=== PATIENT | female | born 1940 | race Caucasian/White ===

== ENCOUNTER 2022-03-11 08:45 | Outpatient (CLI) | payer MEDICARE, BC | END 2022-03-11 08:46 | disposition home or self-care (01) | LOC: RAD 08:45 | PROVIDERS: ATTEND Internal Medicine Critical Care Medicine | DX: R06.00 Dyspnea, unspecified (principal); J98.4 Other disorders of lung | CPT/HCPCS: 71046 ==

== ENCOUNTER 2023-02-07 11:12 | Outpatient (CLI) | payer MEDICARE, BC | END 2023-02-07 11:13 | disposition home or self-care (01) | LOC: RAD 11:12 | PROVIDERS: ATTEND Internal Medicine Critical Care Medicine | DX: R06.00 Dyspnea, unspecified (principal) | CPT/HCPCS: 71046 ==

== ENCOUNTER 2023-02-25 20:50 | Inpatient (IN) | payer MEDICARE, BC ==
[2023-02-25 21:37] LABS: #Monocytes 0.5 thou/uL (0.11-0.59); #Neutrophils 13.7 thou/uL (1.40-6.50); %Basophils 0.3 % (0.0-1.0); %Eosinophils 0.2 % (0.0-10.0); %Lymphocytes 2.9 % (21.0-51.0); %Monocytes 3.2 % (0.0-10.0); %Neutrophils 92.9 % (42.0-75.0); Hematocrit 45.9 % (36.0-47.0); Hemoglobin 15.2 g/dL (12.0-16.0); Mean Corpuscular HGB CONC 33.1 g/dL (32.0-36.0); Mean Corpuscular Hemoglobin 28.2 pg (27.0-31.0); Mean Corpuscular Volume 85.2 fl (78.0-98.0); Mean Platelet Volume 8.7 fL (7.4-10.4); Platelet Count 249 10x3/uL (130-400); RBC Distribution Width 14.9 % (11.5-14.5); Red Blood Cell (RBC) Count 5.39 mill/uL (4.20-5.40); White Blood Cell (WBC) Count 14.7 10x3/uL (4.8-10.8)
[2023-02-25 21:51] LABS: PTT 31.9 sec (22.9-36.1)
[2023-02-25 21:52] LABS: D-Dimer Test 1.95 *mcg/mL (0.27-0.43)
[2023-02-25] MEDS ORDERED: cefTRIAXone (ROCEPHIN) 2 GM VIAL ONE (21:56)
[2023-02-25 22:03] LABS: Troponin I 0.024 ng/mL (< 0.028)
[2023-02-25 22:06] LABS: ALT (SGPT) 18 U/L (8-55); AST (SGOT) 13 U/L (5-34); Albumin 3.6 g/dL (3.4-4.8); Alkaline Phosphatase 79 U/L (40-110); Anion Gap 16 mmol/L (10-20); BUN (Urea Nitrogen) 20 mg/dL (9.8-20.1); Bilirubin, Total 0.4 mg/dL (0.2-1.2); Calc. Creatinine Clearance 0 mL/min (70-130); Calcium 9.1 mg/dL (7.8-10.44); Carbon Dioxide 17 mmol/L (23-31); Chloride 101 mmol/L (98-107); Estimated GFR 85; Globulin 2.7 g/dL (2.4-3.5); Glucose 140 mg/dL (83-110); Potassium 4.2 mmol/L (3.5-5.1); Protein, Total 6.3 g/dL (5.8-8.1); Sodium 130 mmol/L (136-145)
[2023-02-25 22:39] LABS: SARS-CoV-2 NAA Rapid Test Not Detected (NotDetected)
[2023-02-26] MEDS ORDERED: Acetaminophen 650 MG Suppository PR PRN (00:11)
[2023-02-26] MEDS ORDERED: Ondansetron ODT 4 MG TAB PO PRN (00:11)
[2023-02-26] MEDS ORDERED: Ondansetron PF 4 MG/2 ML Vial IVP PRN (00:11)
[2023-02-26 01:07] VITALS: BMI 22.8
[2023-02-26 01:54] LABS: Troponin I 0.015 ng/mL (< 0.028)
[2023-02-26 04:40] LABS: #Monocytes 0.6 thou/uL (0.11-0.59); #Neutrophils 6.4 thou/uL (1.40-6.50); %Basophils 0.1 % (0.0-1.0); %Eosinophils 0.1 % (0.0-10.0); %Lymphocytes 8.7 % (21.0-51.0); %Monocytes 7.9 % (0.0-10.0); %Neutrophils 82.7 % (42.0-75.0); Hematocrit 43.7 % (36.0-47.0); Hemoglobin 13.9 g/dL (12.0-16.0); Mean Corpuscular HGB CONC 31.8 g/dL (32.0-36.0); Mean Platelet Volume 8.4 fL (7.4-10.4); Platelet Count 214 10x3/uL (130-400); RBC Distribution Width 14.9 % (11.5-14.5); Red Blood Cell (RBC) Count 4.96 mill/uL (4.20-5.40); White Blood Cell (WBC) Count 7.7 10x3/uL (4.8-10.8)
[2023-02-26 04:46] LABS: Mean Corpuscular Volume 88.1 fl (78.0-98.0)
[2023-02-26 05:01] LABS: Anion Gap 10 mmol/L (10-20); BUN (Urea Nitrogen) 15 mg/dL (9.8-20.1); Calc. Creatinine Clearance 64 mL/min (70-130); Calcium 8.3 mg/dL (7.8-10.44); Carbon Dioxide 22 mmol/L (23-31); Chloride 105 mmol/L (98-107); Estimated GFR 88; Glucose 126 mg/dL (83-110); Potassium 4.2 mmol/L (3.5-5.1); Sodium 133 mmol/L (136-145)
[2023-02-26 05:07] LABS: Troponin I 0.014 ng/mL (< 0.028)
[2023-02-26] MEDS ORDERED: Simethicone Chewable 80 MG TAB PO PRN (08:46)
[2023-02-26] MEDS ORDERED: Loratadine 10 MG TAB PO SCH (09:00)
[2023-02-26] MEDS ORDERED: predniSONE 20 MG TAB PO SCH (09:00)
[2023-02-26] MEDS: Amlodipine 10 MG TAB PO SCH (09:16)
[2023-02-26] MEDS: Famotidine 20 MG TAB PO SCH (09:18)
[2023-02-26] MEDS: Lisinopril 20 MG TAB PO SCH (09:19)
[2023-02-26] MEDS: Loratadine 10 MG TAB PO SCH (09:20)
[2023-02-26] MEDS: Milk Of Magnesia 30 ML UDCUP PO SCH ×2 (09:20→20:44)
[2023-02-26] MEDS ORDERED: Furosemide 20 MG/2 ML VIAL SLOW IVP SCH (09:45)
[2023-02-26] MEDS: Mometasone 100 MCG HFA INHALER (RT USE) INH SCH (19:05)
[2023-02-27 04:58] LABS: #Eosinphils 0.1 thou/uL (0.0-0.7); #Monocytes 0.8 thou/uL (0.11-0.59); #Neutrophils 6.7 thou/uL (1.40-6.50); %Basophils 0.5 % (0.0-1.0); %Lymphocytes 12.2 % (21.0-51.0); Hematocrit 43.2 % (36.0-47.0); Hemoglobin 14.1 g/dL (12.0-16.0); Mean Corpuscular HGB CONC 32.6 g/dL (32.0-36.0); Mean Corpuscular Hemoglobin 28.1 pg (27.0-31.0); Mean Corpuscular Volume 86.2 fl (78.0-98.0); Mean Platelet Volume 8.7 fL (7.4-10.4); Platelet Count 233 10x3/uL (130-400); RBC Distribution Width 14.8 % (11.5-14.5); Red Blood Cell (RBC) Count 5.01 mill/uL (4.20-5.40); White Blood Cell (WBC) Count 8.7 10x3/uL (4.8-10.8)
[2023-02-27 05:24] LABS: Anion Gap 13 mmol/L (10-20); BUN (Urea Nitrogen) 15 mg/dL (9.8-20.1); Calc. Creatinine Clearance 58 mL/min (70-130); Calcium 8.6 mg/dL (7.8-10.44); Carbon Dioxide 22 mmol/L (23-31); Chloride 102 mmol/L (98-107); Estimated GFR 86; Glucose 87 mg/dL (83-110); Potassium 3.9 mmol/L (3.5-5.1); Sodium 133 mmol/L (136-145)
[2023-02-27] MEDS: Mometasone 100 MCG HFA INHALER (RT USE) INH SCH ×2 (06:52→18:40)
[2023-02-27] MEDS: Lisinopril 20 MG TAB PO SCH (09:53)
[2023-02-27] MEDS: Amlodipine 10 MG TAB PO SCH (09:54)
[2023-02-27] MEDS: Milk Of Magnesia 30 ML UDCUP PO SCH ×2 (09:54→22:46)
[2023-02-27] MEDS: Loratadine 10 MG TAB PO SCH (09:54)
[2023-02-27] MEDS: Famotidine 20 MG TAB PO SCH (09:54)
[2023-02-28] MEDS: Levothyroxine Sodium 125 MCG TAB PO SCH (05:12)
[2023-02-28] MEDS: Mometasone 100 MCG HFA INHALER (RT USE) INH SCH ×2 (07:25→19:05)
[2023-02-28] MEDS: Apixaban 5 MG TAB PO SCH ×2 (09:18→20:16)
[2023-02-28] MEDS: Loratadine 10 MG TAB PO SCH (09:18)
[2023-02-28] MEDS: Famotidine 20 MG TAB PO SCH (09:18)
[2023-02-28] MEDS: Lisinopril 20 MG TAB PO SCH (09:18)
[2023-02-28] MEDS: Amlodipine 10 MG TAB PO SCH (09:19)
[2023-02-28] MEDS: Milk Of Magnesia 30 ML UDCUP PO SCH ×2 (09:20→20:16)
[2023-02-28] MEDS ORDERED: Albuterol 200 PUFF (6.7GM INHALER) INH PRN (10:09)
[2023-02-28] MEDS: Acetaminophen 325 MG TAB PO PRN (20:26)
[2023-03-01] MEDS: Levothyroxine Sodium 125 MCG TAB PO SCH (06:30)
[2023-03-01] MEDS: Mometasone 100 MCG HFA INHALER (RT USE) INH SCH ×2 (07:28→18:33)
[2023-03-01] MEDS: Amlodipine 10 MG TAB PO SCH (09:26)
[2023-03-01] MEDS: Famotidine 20 MG TAB PO SCH (09:27)
[2023-03-01] MEDS: Lisinopril 20 MG TAB PO SCH (09:27)
[2023-03-01] MEDS: Apixaban 5 MG TAB PO SCH ×2 (09:27→21:55)
[2023-03-01] MEDS: Loratadine 10 MG TAB PO SCH (09:27)
[2023-03-01] MEDS: Milk Of Magnesia 30 ML UDCUP PO SCH ×2 (09:29→21:55)
[2023-03-02] MEDS: Levothyroxine Sodium 125 MCG TAB PO SCH (06:09)
[2023-03-02] MEDS: Mometasone 100 MCG HFA INHALER (RT USE) INH SCH ×2 (07:14→19:09)
[2023-03-02] MEDS: Loratadine 10 MG TAB PO SCH (08:13)
[2023-03-02] MEDS: Famotidine 20 MG TAB PO SCH (08:13)
[2023-03-02] MEDS: Lisinopril 20 MG TAB PO SCH (08:14)
[2023-03-02] MEDS: Amlodipine 10 MG TAB PO SCH (08:14)
[2023-03-02] MEDS: Apixaban 5 MG TAB PO SCH ×2 (08:14→20:27)
[2023-03-02] MEDS: Milk Of Magnesia 30 ML UDCUP PO SCH ×2 (08:14→20:28)
[2023-03-03] MEDS: Acetaminophen 325 MG TAB PO PRN ×3 (03:37→21:38)
[2023-03-03] MEDS: Levothyroxine Sodium 125 MCG TAB PO SCH (05:52)
[2023-03-03] MEDS: Mometasone 100 MCG HFA INHALER (RT USE) INH SCH ×2 (07:14→18:34)
[2023-03-03] MEDS: Lisinopril 20 MG TAB PO SCH (08:24)
[2023-03-03] MEDS: Apixaban 5 MG TAB PO SCH ×2 (08:24→21:37)
[2023-03-03] MEDS: Loratadine 10 MG TAB PO SCH (08:24)
[2023-03-03] MEDS: Milk Of Magnesia 30 ML UDCUP PO SCH ×2 (08:25→21:38)
[2023-03-03] MEDS: Amlodipine 10 MG TAB PO SCH (08:25)
[2023-03-03] MEDS: Famotidine 20 MG TAB PO SCH (08:25)
[2023-03-04 00:20] VITALS: TEMP 97.5
[2023-03-04] MEDS: Levothyroxine Sodium 125 MCG TAB PO SCH (05:36)
[2023-03-04] MEDS: Mometasone 100 MCG HFA INHALER (RT USE) INH SCH ×2 (07:27→18:50)
[2023-03-04] MEDS: Famotidine 20 MG TAB PO SCH (08:16)
[2023-03-04] MEDS: Apixaban 5 MG TAB PO SCH (08:16)
[2023-03-04] MEDS: Loratadine 10 MG TAB PO SCH (08:16)
[2023-03-04] MEDS: Milk Of Magnesia 30 ML UDCUP PO SCH ×2 (08:16→08:21)
[2023-03-04] MEDS: Amlodipine 10 MG TAB PO SCH (08:16)
[2023-03-04] MEDS: Lisinopril 20 MG TAB PO SCH (08:16)
[2023-03-04 16:30] VITALS: BP 121/76
== END 2023-03-04 19:05 | DRG 175 ==
LOC: ERS 20:50 → 2NO 23:23 → T4-A 03-02 12:45
PROVIDERS: ADMIT Student in an Organized Health Care Education/Training Program; ATTEND Family Medicine
DX: I26.99 Other pulmonary embolism without acute cor pulmonale (principal); J96.01 Acute respiratory failure with hypoxia; E87.20 Acidosis, unspecified; E87.1 Hypo-osmolality and hyponatremia; I82.432 Acute embolism and thrombosis of left popliteal vein; Z66 Do not resuscitate; Z20.822 Contact with and (suspected) exposure to COVID-19; I10 Essential (primary) hypertension; J45.909 Unspecified asthma, uncomplicated; Z79.899 Other long term (current) drug therapy; Z79.52 Long term (current) use of systemic steroids
CPT/HCPCS: 36415; 71045; 71275; 80048; 80053; 83605; 83880; 84484; 85025; 85379; 85610; 85730; 87040; 93005; 93306; 93970; 94640; 94760; J0696; J1650; J1940; J7512; U0002

== ENCOUNTER 2023-03-28 09:01 | Observation (INO) | payer MEDICARE, BC ==
[2023-03-28 09:32] LABS: #Basophils 0.1 thou/uL (0.0-0.2); #Eosinphils 0.3 thou/uL (0.0-0.7); #Monocytes 0.9 thou/uL (0.11-0.59); #Neutrophils 6.5 thou/uL (1.40-6.50); %Basophils 0.9 % (0.0-1.0); %Eosinophils 3.7 % (0.0-10.0); %Lymphocytes 9.2 % (21.0-51.0); %Monocytes 10.2 % (0.0-10.0); %Neutrophils 75.6 % (42.0-75.0); Hematocrit 38.4 % (36.0-47.0); Hemoglobin 12.9 g/dL (12.0-16.0); Mean Corpuscular HGB CONC 33.6 g/dL (32.0-36.0); Mean Corpuscular Hemoglobin 28.9 pg (27.0-31.0); Mean Corpuscular Volume 86.1 fl (78.0-98.0); Mean Platelet Volume 8.1 fL (7.4-10.4); Platelet Count 489 10x3/uL (130-400); RBC Distribution Width 14.1 % (11.5-14.5); Red Blood Cell (RBC) Count 4.46 mill/uL (4.20-5.40); White Blood Cell (WBC) Count 8.6 10x3/uL (4.8-10.8)
[2023-03-28 09:46] LABS: PTT 31.5 sec (22.9-36.1)
[2023-03-28 09:55] LABS: ALT (SGPT) 13 U/L (8-55); AST (SGOT) 11 U/L (5-34); Albumin 3.5 g/dL (3.4-4.8); Alkaline Phosphatase 84 U/L (40-110); Anion Gap 14 mmol/L (10-20); BUN (Urea Nitrogen) 9 mg/dL (9.8-20.1); Bilirubin, Total 0.4 mg/dL (0.2-1.2); Calc. Creatinine Clearance 0 mL/min (70-130); Carbon Dioxide 24 mmol/L (23-31); Chloride 98 mmol/L (98-107); Estimated GFR 85; Globulin 2.6 g/dL (2.4-3.5); Glucose 116 mg/dL (83-110); Potassium 3.7 mmol/L (3.5-5.1); Protein, Total 6.1 g/dL (5.8-8.1); Sodium 132 mmol/L (136-145)
[2023-03-28 10:00] LABS: Troponin I Less than 0.010 ng/mL (< 0.028)
[2023-03-28] MEDS ORDERED: Iopamidol-370 76% 500 ML MDV (1 ML CHARGE) ONE (11:04)
[2023-03-28 12:01] LABS: Bacteria/HPF None Seen HPF (None Seen); Bilirubin Negative (Negative); Blood, Urine Negative (Negative); CAUTI Indications for Culture Alt mental st,lethar; Clarity Clear (Clear); Glucose, Urine (Dipstick) Normal (Negative); Ketone, Urine Negative (Negative); Leukocyte Negative Leu/uL (Negative); Nitrite Negative (Negative); Protein, Urine (Dipstick) Negative (Neg-Trace); RBC/HPF 0-3 HPF (0-3); Specific Gravity, Urine 1.016 (1.002-1.036); Squamous Epithelial None Seen HPF (0-3); Urobilinogen Normal mg/dL (Less than 2); WBC/HPF 0-3 HPF (0-3)
[2023-03-28 12:06] LABS: Urine Culture Reflex No No
[2023-03-28] MEDS ORDERED: SIMETHICONE 125 MG PO PRN (13:05)
[2023-03-28] MEDS ORDERED: Acetaminophen 650 MG Suppository PR PRN (13:14)
[2023-03-28] MEDS ORDERED: hydrALAZINE 20 MG/ML VIAL SLOW IVP PRN (13:14)
[2023-03-28] MEDS ORDERED: Acetaminophen 325 MG TAB PO PRN (13:14)
[2023-03-28] MEDS ORDERED: Electrolyte Replacement Protocol 1 EACH FS SCH (13:30)
[2023-03-28] MEDS ORDERED: Simethicone Chewable 80 MG TAB PO PRN (13:43)
[2023-03-28] MEDS ORDERED: Aspirin 81 mg Enteric Coated Tablet PO SCH (14:45)
[2023-03-28] MEDS: Albuterol 200 PUFF (6.7GM INHALER) INH SCH ×3 (15:44→21:22)
[2023-03-28 15:45] VITALS: BMI 18.1
[2023-03-28] MEDS ORDERED: Non-Formulary Item 1 EACH (Albuterol Sulfate [Proair Digihaler] 90 MCG Aer.Pw.Bas) IH SCH (17:00)
[2023-03-28] MEDS: Mometasone 100 MCG/PUFF (1 INHALER) INH SCH (18:31)
[2023-03-28] MEDS ORDERED: ALBUTEROL SULFATE 4 MG PO SCH (21:00)
[2023-03-28] MEDS ORDERED: [UNRECOGNIZED DRUG - OTHER] NS SCH (21:00)
[2023-03-28] MEDS ORDERED: Atorvastatin Calcium 40 MG TAB PO SCH (21:00)
[2023-03-28] MEDS ORDERED: Non-Formulary Item 1 EACH (Fexofenadine Hcl [Allegra Allergy] 60 MG Tablet) PO SCH (21:00)
[2023-03-28] MEDS: Apixaban 5 MG TAB PO SCH (21:12)
[2023-03-28 23:59] VITALS: TEMP 97.7
[2023-03-29] MEDS: Albuterol 200 PUFF (6.7GM INHALER) INH SCH ×4 (00:22→10:33)
[2023-03-29 05:19] LABS: #Basophils 0.1 thou/uL (0.0-0.2); #Eosinphils 0.5 thou/uL (0.0-0.7); #Neutrophils 5.7 thou/uL (1.40-6.50); %Basophils 1.1 % (0.0-1.0); %Eosinophils 5.9 % (0.0-10.0); %Lymphocytes 10.9 % (21.0-51.0); %Monocytes 12.4 % (0.0-10.0); %Neutrophils 69.3 % (42.0-75.0); Hematocrit 38.3 % (36.0-47.0); Hemoglobin 12.5 g/dL (12.0-16.0); Mean Corpuscular HGB CONC 32.6 g/dL (32.0-36.0); Mean Corpuscular Volume 85.7 fl (78.0-98.0); Mean Platelet Volume 8.1 fL (7.4-10.4); Platelet Count 479 10x3/uL (130-400); RBC Distribution Width 14.2 % (11.5-14.5); Red Blood Cell (RBC) Count 4.47 mill/uL (4.20-5.40); White Blood Cell (WBC) Count 8.3 10x3/uL (4.8-10.8)
[2023-03-29] MEDS ORDERED: Levothyroxine Sodium 125 MCG TAB PO SCH (06:00)
[2023-03-29] MEDS: Mometasone 100 MCG/PUFF (1 INHALER) INH SCH (06:50)
[2023-03-29 07:20] LABS: Anion Gap 14 mmol/L (10-20); BUN (Urea Nitrogen) 6 mg/dL (9.8-20.1); Calc. Creatinine Clearance 68 mL/min (70-130); Calcium 8.8 mg/dL (7.8-10.44); Carbon Dioxide 24 mmol/L (23-31); Cardiac Risk 3.1 (Less than 4.5); Chloride 99 mmol/L (98-107); Cholesterol 155 mg/dl (< 200 Desired); Estimated GFR 90; Glucose 102 mg/dL (83-110); HDL Cholesterol 50 mg/dL (>60 Neg Risk); LDL Cholesterol, Calculated 94 mg/dL; Magnesium 2.1 mg/dL (1.6-2.6); Potassium 3.5 mmol/L (3.5-5.1); Sodium 133 mmol/L (136-145); Triglycerides 57 mg/dL (Less than 150)
[2023-03-29] MEDS ORDERED: Potassium Chloride 20 MEQ TAB PO SCH (08:00)
[2023-03-29] MEDS: Apixaban 5 MG TAB PO SCH (08:54)
[2023-03-29] MEDS ORDERED: Aspirin 81 mg Enteric Coated Tablet PO SCH (09:00)
[2023-03-29] MEDS ORDERED: Famotidine 20 MG TAB PO SCH (09:00)
[2023-03-29] MEDS ORDERED: Non-Formulary Item 1 EACH (Levothyroxine Sodium [Levothyroxine Sodium] 125 MCG Capsule) PO SCH (09:00)
[2023-03-29] MEDS ORDERED: FLU VACC QS2023(65UP)/MF59C/PF 60 MCG/0.5 ML SYRINGE IM ONE (09:00)
[2023-03-29] MEDS ORDERED: Lisinopril 20 MG TAB PO SCH (09:00)
[2023-03-29] MEDS ORDERED: Loratadine 10 MG TAB PO SCH (09:00)
[2023-03-29 09:55] VITALS: BP 187/103
[2023-04-05] MEDS ORDERED: Apixaban 5 MG TAB PO SCH (09:00)
== END 2023-03-29 11:45 | disposition home or self-care (01) ==
LOC: ERS 09:01 → 2SE 11:44
PROVIDERS: ADMIT Internal Medicine; ATTEND Internal Medicine
DX: R41.82 Altered mental status, unspecified (principal); I10 Essential (primary) hypertension; J90 Pleural effusion, not elsewhere classified; J45.40 Moderate persistent asthma, uncomplicated; E87.1 Hypo-osmolality and hyponatremia; E03.9 Hypothyroidism, unspecified; H26.9 Unspecified cataract; F03.90 Unspecified dementia, unspecified severity, without behavioral disturbance, psychotic disturbance, mood disturbance, and anxiety; Z99.81 Dependence on supplemental oxygen; Z79.890 Hormone replacement therapy; Z79.899 Other long term (current) drug therapy; Z79.01 Long term (current) use of anticoagulants; Z86.718 Personal history of other venous thrombosis and embolism
CPT/HCPCS: 70450; 70496; 70498; 71045; 80048; 80053; 80061; 81001; 82962; 83735; 84484; 85025 ×2; 85610; 85730; 93005; 95816; 95819; 99285; G0378 ×3; 36415; 36416; Q9967

== ENCOUNTER 2023-04-13 16:28 | Inpatient (IN) | payer MEDICARE, BC ==
[2023-04-13] MEDS ORDERED: Magnesium 2 GM/50 ML BAG (IN WATER) ONE (16:51)
[2023-04-13] MEDS ORDERED: methylPREDNISolone Sod Succ/PF 125 MG/2 ML VIAL ONE (16:51)
[2023-04-13] MEDS ORDERED: Ipratropium/Albuterol 3 ML NEB ONE (16:57)
[2023-04-13 17:22] LABS: #Basophils 0.1 thou/uL (0.0-0.2); #Eosinphils 0.2 thou/uL (0.0-0.7); #Monocytes 0.9 thou/uL (0.11-0.59); #Neutrophils 4.8 thou/uL (1.40-6.50); %Basophils 1.2 % (0.0-1.0); %Eosinophils 2.3 % (0.0-10.0); %Lymphocytes 14.4 % (21.0-51.0); %Monocytes 12.4 % (0.0-10.0); %Neutrophils 69.4 % (42.0-75.0); Hematocrit 38.8 % (36.0-47.0); Hemoglobin 12.8 g/dL (12.0-16.0); Mean Corpuscular Hemoglobin 28.2 pg (27.0-31.0); Mean Corpuscular Volume 85.5 fl (78.0-98.0); Platelet Count 426 10x3/uL (130-400); RBC Distribution Width 14.4 % (11.5-14.5); Red Blood Cell (RBC) Count 4.54 mill/uL (4.20-5.40); White Blood Cell (WBC) Count 6.9 10x3/uL (4.8-10.8)
[2023-04-13 17:49] LABS: ALT (SGPT) 17 U/L (8-55); AST (SGOT) 15 U/L (5-34); Albumin 3.9 g/dL (3.4-4.8); Alkaline Phosphatase 81 U/L (40-110); Anion Gap 16 mmol/L (10-20); BUN (Urea Nitrogen) 11 mg/dL (9.8-20.1); Bilirubin, Total 0.8 mg/dL (0.2-1.2); Calc. Creatinine Clearance 0 mL/min (70-130); Calcium 9.1 mg/dL (7.8-10.44); Carbon Dioxide 18 mmol/L (23-31); Chloride 95 mmol/L (98-107); Estimated GFR 85; Globulin 2.2 g/dL (2.4-3.5); Glucose 99 mg/dL (83-110); Magnesium 2.7 mg/dL (1.6-2.6); Potassium 4.5 mmol/L (3.5-5.1); Protein, Total 6.1 g/dL (5.8-8.1); Sodium 124 mmol/L (136-145)
[2023-04-13 17:50] LABS: Troponin I Less than 0.010 ng/mL (< 0.028)
[2023-04-13 19:57] LABS: Anion Gap 16 mmol/L (10-20); BUN (Urea Nitrogen) 10 mg/dL (9.8-20.1); Calc. Creatinine Clearance 0 mL/min (70-130); Calcium 9.1 mg/dL (7.8-10.44); Carbon Dioxide 18 mmol/L (23-31); Chloride 94 mmol/L (98-107); Estimated GFR 86; Glucose 110 mg/dL (83-110); Potassium 4.4 mmol/L (3.5-5.1); Sodium 124 mmol/L (136-145)
[2023-04-13 20:32] LABS: Troponin I Less than 0.010 ng/mL (< 0.028)
[2023-04-13 21:13] VITALS: BMI 19.2
[2023-04-13] MEDS ORDERED: Ondansetron ODT 4 MG TAB PO PRN (21:37)
[2023-04-13] MEDS ORDERED: Lactated Ringer's 500 ML IV SCH (21:45)
[2023-04-13] MEDS: Ipratropium/Albuterol 3 ML NEB NEB SCH (23:10)
[2023-04-13 23:39] LABS: Troponin I 0.027 ng/mL (< 0.028)
[2023-04-13] MEDS: Acetaminophen 325 MG TAB PO PRN (23:40)
[2023-04-14 01:33] LABS: Bacteria/HPF None Seen HPF (None Seen); Bilirubin Negative (Negative); Blood, Urine 2+ (Negative); Clarity Clear (Clear); Glucose, Urine (Dipstick) 50 mg/dL (Negative); Ketone, Urine 40 mg/dL (Negative); Leukocyte Negative Leu/uL (Negative); Nitrite Negative (Negative); Protein, Urine (Dipstick) 20 mg/dL (Neg-Trace); RBC/HPF 21-50 HPF (0-3); Specific Gravity, Urine 1.008 (1.002-1.036); Squamous Epithelial None Seen HPF (0-3); Urobilinogen Normal mg/dL (Less than 2); WBC/HPF None Seen HPF (0-3); pH, Urine 7.5 (5.0-9.0)
[2023-04-14] MEDS: Levothyroxine Sodium 125 MCG TAB PO SCH (03:45)
[2023-04-14] MEDS: Mometasone 200 MCG HFA INHALER (RT USE) INH SCH ×2 (07:04→18:43)
[2023-04-14] MEDS: Ipratropium/Albuterol 3 ML NEB NEB SCH ×3 (07:04→18:41)
[2023-04-14 08:04] LABS: #Monocytes 1.2 thou/uL (0.11-0.59); #Neutrophils 7.9 thou/uL (1.40-6.50); %Basophils 0.2 % (0.0-1.0); %Monocytes 11.9 % (0.0-10.0); %Neutrophils 79.6 % (42.0-75.0); Hematocrit 43.8 % (36.0-47.0); Hemoglobin 14.5 g/dL (12.0-16.0); Mean Corpuscular HGB CONC 33.1 g/dL (32.0-36.0); Mean Corpuscular Volume 84.7 fl (78.0-98.0); Mean Platelet Volume 7.8 fL (7.4-10.4); Platelet Count 478 10x3/uL (130-400); RBC Distribution Width 14.4 % (11.5-14.5); Red Blood Cell (RBC) Count 5.17 mill/uL (4.20-5.40); White Blood Cell (WBC) Count 9.9 10x3/uL (4.8-10.8)
[2023-04-14 08:32] LABS: Anion Gap 16 mmol/L (10-20); BUN (Urea Nitrogen) 8 mg/dL (9.8-20.1); Calc. Creatinine Clearance 60 mL/min (70-130); Calcium 9.2 mg/dL (7.8-10.44); Carbon Dioxide 22 mmol/L (23-31); Chloride 93 mmol/L (98-107); Estimated GFR 86; Glucose 96 mg/dL (83-110); Potassium 4.3 mmol/L (3.5-5.1); Sodium 127 mmol/L (136-145)
[2023-04-14] MEDS: Acetaminophen 325 MG TAB PO PRN (09:27)
[2023-04-14] MEDS: Apixaban 5 MG TAB PO SCH ×2 (09:30→22:05)
[2023-04-14] MEDS: Lisinopril 20 MG TAB PO SCH (09:31)
[2023-04-14] MEDS: Aspirin 81 mg Enteric Coated Tablet PO SCH (09:31)
[2023-04-14] MEDS: predniSONE 20 MG TAB PO SCH (09:31)
[2023-04-14] MEDS: Famotidine 20 MG TAB PO SCH ×2 (09:31→22:05)
[2023-04-14] MEDS ORDERED: Phenol 177 ML BOT PO PRN (14:45)
[2023-04-14] MEDS: Albuterol 200 PUFF (6.7GM INHALER) INH SCH ×3 (15:00→22:49)
[2023-04-14] MEDS ORDERED: Amoxicillin/Potassium Clav 500 MG TAB PO SCH (15:45)
[2023-04-14] MEDS: Sodium Chloride 0.9% 1,000 ML IV SCH (16:02)
[2023-04-14] MEDS: Atorvastatin Calcium 40 MG TAB PO SCH (22:05)
[2023-04-15] MEDS: Sodium Chloride 0.9% 1,000 ML IV SCH ×2 (01:47→17:41)
[2023-04-15] MEDS: Acetaminophen 325 MG TAB PO PRN (01:50)
[2023-04-15] MEDS: Albuterol 200 PUFF (6.7GM INHALER) INH SCH ×6 (02:24→22:50)
[2023-04-15 05:09] LABS: Anion Gap 12 mmol/L (10-20); BUN (Urea Nitrogen) 10 mg/dL (9.8-20.1); Calc. Creatinine Clearance 62 mL/min (70-130); Calcium 8.6 mg/dL (7.8-10.44); Carbon Dioxide 21 mmol/L (23-31); Chloride 101 mmol/L (98-107); Estimated GFR 87; Glucose 95 mg/dL (83-110); Potassium 3.8 mmol/L (3.5-5.1); Sodium 130 mmol/L (136-145)
[2023-04-15] MEDS: Levothyroxine Sodium 125 MCG TAB PO SCH (06:47)
[2023-04-15] MEDS: Mometasone 200 MCG HFA INHALER (RT USE) INH SCH ×2 (07:13→18:48)
[2023-04-15] MEDS: Lisinopril 20 MG TAB PO SCH (10:25)
[2023-04-15] MEDS: Famotidine 20 MG TAB PO SCH ×2 (10:25→20:00)
[2023-04-15] MEDS: predniSONE 20 MG TAB PO SCH (10:26)
[2023-04-15] MEDS: Aspirin 81 mg Enteric Coated Tablet PO SCH (10:26)
[2023-04-15] MEDS: Apixaban 5 MG TAB PO SCH ×2 (10:26→20:00)
[2023-04-15] MEDS: Amoxicillin/Potassium Clav 500 MG TAB PO SCH ×2 (10:27→20:00)
[2023-04-15] MEDS ORDERED: Ipratropium/Albuterol 3 ML NEB NEB PRN (14:49)
[2023-04-15] MEDS: Atorvastatin Calcium 40 MG TAB PO SCH (20:00)
[2023-04-16] MEDS: Albuterol 200 PUFF (6.7GM INHALER) INH SCH ×6 (02:03→22:54)
[2023-04-16] MEDS: Levothyroxine Sodium 125 MCG TAB PO SCH (05:28)
[2023-04-16 05:55] LABS: Anion Gap 11 mmol/L (10-20); BUN (Urea Nitrogen) 12 mg/dL (9.8-20.1); Calc. Creatinine Clearance 56 mL/min (70-130); Calcium 8.7 mg/dL (7.8-10.44); Carbon Dioxide 25 mmol/L (23-31); Chloride 101 mmol/L (98-107); Estimated GFR 83; Glucose 82 mg/dL (83-110); Potassium 3.8 mmol/L (3.5-5.1); Sodium 133 mmol/L (136-145)
[2023-04-16] MEDS: Mometasone 200 MCG HFA INHALER (RT USE) INH SCH ×2 (06:36→18:42)
[2023-04-16] MEDS: Famotidine 20 MG TAB PO SCH ×2 (09:57→20:06)
[2023-04-16] MEDS: predniSONE 20 MG TAB PO SCH (10:00)
[2023-04-16] MEDS: Lisinopril 20 MG TAB PO SCH (10:00)
[2023-04-16] MEDS: Aspirin 81 mg Enteric Coated Tablet PO SCH (10:00)
[2023-04-16] MEDS: Apixaban 5 MG TAB PO SCH ×2 (10:01→20:06)
[2023-04-16] MEDS: Amlodipine 10 MG TAB PO SCH (10:01)
[2023-04-16] MEDS: Amoxicillin/Potassium Clav 500 MG TAB PO SCH ×2 (10:01→20:06)
[2023-04-16] MEDS: Atorvastatin Calcium 40 MG TAB PO SCH (20:07)
[2023-04-17] MEDS: Albuterol 200 PUFF (6.7GM INHALER) INH SCH ×6 (02:42→21:45)
[2023-04-17] MEDS: Levothyroxine Sodium 125 MCG TAB PO SCH (05:48)
[2023-04-17 06:10] LABS: #Basophils 0.1 thou/uL (0.0-0.2); #Eosinphils 0.1 thou/uL (0.0-0.7); #Monocytes 1.1 thou/uL (0.11-0.59); #Neutrophils 6.8 thou/uL (1.40-6.50); %Basophils 0.6 % (0.0-1.0); %Lymphocytes 14.6 % (21.0-51.0); %Monocytes 11.2 % (0.0-10.0); %Neutrophils 72.2 % (42.0-75.0); Hematocrit 42.8 % (36.0-47.0); Hemoglobin 14.1 g/dL (12.0-16.0); Mean Corpuscular HGB CONC 32.9 g/dL (32.0-36.0); Mean Corpuscular Hemoglobin 28.3 pg (27.0-31.0); Mean Corpuscular Volume 85.8 fl (78.0-98.0); Mean Platelet Volume 8.2 fL (7.4-10.4); Platelet Count 471 10x3/uL (130-400); RBC Distribution Width 14.6 % (11.5-14.5); Red Blood Cell (RBC) Count 4.99 mill/uL (4.20-5.40); White Blood Cell (WBC) Count 9.4 10x3/uL (4.8-10.8)
[2023-04-17 06:33] LABS: Anion Gap 15 mmol/L (10-20); BUN (Urea Nitrogen) 16 mg/dL (9.8-20.1); Calc. Creatinine Clearance 59 mL/min (70-130); Calcium 8.8 mg/dL (7.8-10.44); Carbon Dioxide 22 mmol/L (23-31); Chloride 99 mmol/L (98-107); Estimated GFR 86; Glucose 97 mg/dL (83-110); Magnesium 2.1 mg/dL (1.6-2.6); Potassium 3.9 mmol/L (3.5-5.1); Sodium 132 mmol/L (136-145)
[2023-04-17] MEDS: Mometasone 200 MCG HFA INHALER (RT USE) INH SCH ×2 (07:12→18:54)
[2023-04-17] MEDS: Lisinopril 20 MG TAB PO SCH (09:10)
[2023-04-17] MEDS: Amlodipine 10 MG TAB PO SCH (09:10)
[2023-04-17] MEDS: Aspirin 81 mg Enteric Coated Tablet PO SCH (09:10)
[2023-04-17] MEDS: Amoxicillin/Potassium Clav 500 MG TAB PO SCH ×2 (09:11→20:31)
[2023-04-17] MEDS: Apixaban 5 MG TAB PO SCH ×2 (09:11→20:30)
[2023-04-17] MEDS: predniSONE 20 MG TAB PO SCH (09:11)
[2023-04-17] MEDS: Famotidine 20 MG TAB PO SCH ×2 (09:11→20:31)
[2023-04-17] MEDS: Atorvastatin Calcium 40 MG TAB PO SCH (20:31)
[2023-04-18] MEDS: Albuterol 200 PUFF (6.7GM INHALER) INH SCH ×4 (02:55→14:57)
[2023-04-18] MEDS: Levothyroxine Sodium 125 MCG TAB PO SCH (06:11)
[2023-04-18] MEDS: Mometasone 200 MCG HFA INHALER (RT USE) INH SCH ×2 (06:49→19:36)
[2023-04-18] MEDS: Famotidine 20 MG TAB PO SCH ×2 (08:54→20:28)
[2023-04-18] MEDS: Apixaban 5 MG TAB PO SCH ×2 (08:54→20:27)
[2023-04-18] MEDS: Lisinopril 20 MG TAB PO SCH (08:54)
[2023-04-18] MEDS: predniSONE 20 MG TAB PO SCH (08:54)
[2023-04-18] MEDS: Aspirin 81 mg Enteric Coated Tablet PO SCH (08:55)
[2023-04-18] MEDS: Amlodipine 10 MG TAB PO SCH (08:55)
[2023-04-18] MEDS: Amoxicillin/Potassium Clav 500 MG TAB PO SCH ×2 (08:55→20:27)
[2023-04-18] MEDS: Acetaminophen 325 MG TAB PO PRN ×3 (10:25→20:28)
[2023-04-18] MEDS: Ipratropium/Albuterol 3 ML NEB NEB SCH ×3 (14:49→23:57)
[2023-04-18] MEDS: Senokot S 8.6-50 MG TAB PO SCH (20:27)
[2023-04-18] MEDS: Atorvastatin Calcium 40 MG TAB PO SCH (20:29)
[2023-04-19] MEDS: Ipratropium/Albuterol 3 ML NEB NEB SCH ×5 (00:38→19:19)
[2023-04-19 05:37] LABS: Anion Gap 11 mmol/L (10-20); BUN (Urea Nitrogen) 22 mg/dL (9.8-20.1); Calc. Creatinine Clearance 58 mL/min (70-130); Calcium 8.7 mg/dL (7.8-10.44); Carbon Dioxide 25 mmol/L (23-31); Chloride 97 mmol/L (98-107); Estimated GFR 85; Glucose 95 mg/dL (83-110); Potassium 3.8 mmol/L (3.5-5.1); Sodium 129 mmol/L (136-145)
[2023-04-19] MEDS: Levothyroxine Sodium 125 MCG TAB PO SCH (06:05)
[2023-04-19] MEDS: Mometasone 200 MCG HFA INHALER (RT USE) INH SCH ×2 (06:49→19:21)
[2023-04-19] MEDS: Apixaban 5 MG TAB PO SCH ×2 (09:47→22:06)
[2023-04-19] MEDS: Polyethylene Glycol 3350 17 GM Packet PO SCH (09:47)
[2023-04-19] MEDS: Amlodipine 10 MG TAB PO SCH (09:47)
[2023-04-19] MEDS: Senokot S 8.6-50 MG TAB PO SCH ×2 (09:47→22:06)
[2023-04-19] MEDS: Aspirin 81 mg Enteric Coated Tablet PO SCH (09:48)
[2023-04-19] MEDS: Lisinopril 20 MG TAB PO SCH (09:48)
[2023-04-19] MEDS: predniSONE 20 MG TAB PO SCH (09:48)
[2023-04-19] MEDS: Amoxicillin/Potassium Clav 500 MG TAB PO SCH (09:54)
[2023-04-19] MEDS: Famotidine 20 MG TAB PO SCH ×2 (09:54→22:05)
[2023-04-19] MEDS: Acetaminophen 325 MG TAB PO PRN ×2 (10:46→22:06)
[2023-04-19] MEDS: Atorvastatin Calcium 40 MG TAB PO SCH (22:06)
[2023-04-19] MEDS: Albuterol 200 PUFF (6.7GM INHALER) INH PRN (22:43)
[2023-04-20 05:49] LABS: Anion Gap 13 mmol/L (10-20); BUN (Urea Nitrogen) 21 mg/dL (9.8-20.1); Calc. Creatinine Clearance 59 mL/min (70-130); Calcium 8.5 mg/dL (7.8-10.44); Carbon Dioxide 23 mmol/L (23-31); Chloride 97 mmol/L (98-107); Estimated GFR 86; Glucose 83 mg/dL (83-110); Potassium 4.2 mmol/L (3.5-5.1); Sodium 129 mmol/L (136-145)
[2023-04-20] MEDS: Levothyroxine Sodium 125 MCG TAB PO SCH (06:35)
[2023-04-20] MEDS: Albuterol 200 PUFF (6.7GM INHALER) INH PRN (06:36)
[2023-04-20] MEDS: Ipratropium/Albuterol 3 ML NEB NEB SCH ×2 (07:32→14:41)
[2023-04-20] MEDS: Mometasone 200 MCG HFA INHALER (RT USE) INH SCH (07:34)
[2023-04-20] MEDS: Acetaminophen 325 MG TAB PO PRN (07:43)
[2023-04-20] MEDS: Aspirin 81 mg Enteric Coated Tablet PO SCH (07:44)
[2023-04-20] MEDS: Lisinopril 20 MG TAB PO SCH (07:44)
[2023-04-20] MEDS: Senokot S 8.6-50 MG TAB PO SCH (07:44)
[2023-04-20] MEDS: Polyethylene Glycol 3350 17 GM Packet PO SCH (07:44)
[2023-04-20] MEDS: predniSONE 20 MG TAB PO SCH (07:46)
[2023-04-20] MEDS: Amlodipine 10 MG TAB PO SCH (07:47)
[2023-04-20] MEDS: Famotidine 20 MG TAB PO SCH (07:47)
[2023-04-20] MEDS: Apixaban 5 MG TAB PO SCH (07:47)
[2023-04-20 08:55] VITALS: TEMP 97.4
[2023-04-20 13:34] VITALS: BP 146/78
== END 2023-04-20 16:10 | DRG 202 ==
LOC: ERS 16:28 → 2SW 18:33 → OBSVTOIN 04-14 11:16 → 2SE 04-14 18:46
PROVIDERS: ADMIT Internal Medicine; ATTEND Family Medicine
DX: J45.901 Unspecified asthma with (acute) exacerbation (principal); I26.99 Other pulmonary embolism without acute cor pulmonale; J96.01 Acute respiratory failure with hypoxia; J44.1 Chronic obstructive pulmonary disease with (acute) exacerbation; E87.1 Hypo-osmolality and hyponatremia; I82.402 Acute embolism and thrombosis of unspecified deep veins of left lower extremity; I82.532 Chronic embolism and thrombosis of left popliteal vein; Z66 Do not resuscitate; I10 Essential (primary) hypertension; E03.9 Hypothyroidism, unspecified; R53.81 Other malaise; K12.1 Other forms of stomatitis; K59.00 Constipation, unspecified; F03.90 Unspecified dementia, unspecified severity, without behavioral disturbance, psychotic disturbance, mood disturbance, and anxiety; Z20.822 Contact with and (suspected) exposure to COVID-19; Z79.899 Other long term (current) drug therapy; Z98.891 History of uterine scar from previous surgery; Z98.890 Other specified postprocedural states
CPT/HCPCS: 36415; 71045; 80048; 80053; 81001; 83735; 83880; 83930; 83935; 84300; 84484; 85025; 85379; 93005; 94640; 96365; 96375; G0378; J2930; J3475; J7050; J7120; J7512; J7620